=== PATIENT | male | born 1995 | race African-American/Black ===

== ENCOUNTER 2019-06-17 15:48 | Emergency (ER) | payer OTHER ==
[~2019-06-17] VITALS: Ht 180.3 cm; Wt 94.3 kg
[2019-06-17 16:08] VITALS: BP 131/76
--- NOTE | 2019-06-17 16:26 | Emergency Room Report ---
History of Present Illness General Chief Complaint: Pain Source: Patient Present Illness HPI 24-year-old male presents to the emergency department complaining of 10 out of 10 severity sore throat primarily on the left side that is been progressive x4 days. Patient reports that he was seen last night at [facility] for which he was evaluated and given an unknown injection and sent home. Patient reports today his symptoms are worse. Pain is exacerbated upon attempts to swallow or talk. He denies fevers or chills. Patient states he is not taking any other medications for symptoms. Denies cough, excessive drooling or inability to tolerate his own secretions. Patient denies shortness of breath or difficulty breathing. He denies rashes. Allergies: Coded Allergies: No Known Allergies (Unverified , 06/17/19) COVID-19 Screening Contact w/high risk pt: No Recent Travel to affected area: No Experienced COVID-19 symptoms?: No Patient History Past Medical History: see triage record Past Surgical History: none Pertinent Family History: none Immunizations: UTD Reviewed Nursing Documentation: PMH: Agreed; PSxH: Agreed Nursing Documentation-PMH Past Medical History: No Stated History Review of Systems All Other Systems: negative except mentioned in HPI Physical Exam Vital Signs Date Time Temp Pulse Resp B/P (MAP) Pulse Ox O2 Delivery O2 Flow Rate FiO2 06/17/19 15:55 98.2 83 15 131/76 (94) 95 Room Air Sp02 EP Interpretation: reviewed, normal General Appearance: no apparent distress, alert, GCS 15, non-toxic Head: normocephalic, atraumatic Eyes: bilateral eye normal inspection, bilateral eye PERRL ENT: hearing grossly normal, normal voice, other - Tonsillar swelling bilaterally however majority in the left tonsil as well as some visible swelling and fullness in the posterior soft palate on the left side. Palpable fullness as well. No exudates noted. Neck: full range of motion, no meningismus, no bony tend Respiratory: chest non-tender, lungs clear, normal breath sounds, no accessory muscle use, no wheezing, speaking full sentences, other - no stridor Cardiovascular #1: regular rate, rhythm Musculoskeletal: normal range of motion, gait/station normal, non-tender Neurologic: alert, motor strength/tone normal, oriented x3, sensory intact, responsive, speech normal Psychiatric: judgement/insight normal Lymphatic: no adenopathy Medical Decision Making PA Attestation Dr. Smith Is my supervising Physician whom patient management has been discussed with. Diagnostic Impression: Primary Impression: Acute bacterial tonsillitis Additional Impression: Early left peritonsillar abscess ER Course 24-year-old male presents to the emergency department complaining of 10 out of 10 severity sore throat primarily on the left side that is been progressive x4 days. Patient reports that he was seen last night at [facility] for which he was evaluated and given an unknown injection and sent home. Patient reports today his symptoms are worse. Pain is exacerbated upon attempts to swallow or talk. He denies fevers or chills. Patient states he is not taking any other medications for symptoms. Denies cough, excessive drooling or inability to tolerate his own secretions. Patient denies shortness of breath or difficulty breathing. He denies rashes. Ddx considered but are not limited to: pharyngitis, strep, [employer], ludwigs angina, retropharyngeal abscess, URI just to name a few. Vital signs: are WNL, pt. is afebrile H&PE are most consistent with: Clinical appearance with high suspicion for Left - sided [employer] ORDERS: -CT neck with contrast: ED INTERVENTIONS: - Unasyn 3gm IV - 10mg Decadron IV - Toradol 15mg IV -Lidocaine viscous PO d/w pt. strict ED return precautions for worsening of symptoms, difficulty breathing/SOB, inability or difficulty with swallowing or tolerating his own saliva, or worsening of pain. DISCHARGE: At this time pt. is stable for d/c to home. Will provide printed patient care instructions, and any necessary prescriptions. Care plan and follow up instructions have been discussed with the patient prior to discharge. CT/MRI/US Diagnostic Results CT/MRI/US Diagnostic Results : Imaging Test Ordered: CT neck with contrast Impression "IMPRESSION: [place] tonsillar enlargement, left greater than right suggesting tonsillitis. A vague 1.9 cm hypodensity suggests phlegmon/early left peritonsillar abscess. Doubt that this is a drainable fluid collection currently. Mild narrowing of the oropharyngeal airway. ". --Per official radiology report- Please see report for specific details. Last Vital Signs Date Time Temp Pulse Resp B/P (MAP) Pulse Ox O2 Delivery O2 Flow Rate FiO2 06/17/19 16:08 98.2 15 131/76 95 Room Air 06/17/19 15:55 83 Disposition: HOME, SELF-CARE Condition: Stable Scripts Ibuprofen* (MOTRIN*) 600 Mg Tablet 600 MG ORAL THREE TIMES A DAY, #20 TAB Prov: Christel Beckman 06/17/19 Lidocaine HCl 2% Viscous (Lidocaine HCl 2% Viscous) 100 Ml Solution 10 ML ORAL QID, #200 ML Prov: Christel Beckman 06/17/19 Acetaminophen With Codeine (T#3) (TYLENOL #3 TAB*) Y Tab 1 TAB ORAL Q6H PRN for For Pain, #9 TAB Prov: Christel Beckman 06/17/19 Amoxicillin/Potassium Clav 875-125* (AUGMENTIN 875-125 TABLET*) 1 Each Tablet 1 TAB ORAL TWICE A DAY for 10 Days, #20 TAB Prov: Christel Beckman 06/17/19 Referrals: [facility] + [facility] Patient Instructions: Peritonsillar Abscess, Clat-[id number] Additional Instructions: Take medications as directed. Follow up with a Primary Care Provider in 3-5 days, even if your symptoms have resolved. --Please review list of primary care clinics, if you do not already have a primary care provider Return sooner to ED if new symptoms occur, or current symptoms become worse. Do not drink alcohol, drive, or operate heavy machinery while taking Tylenol # 3 as this may cause drowsiness. - Please note that this Emergency Department Report was dictated using [employer] agent technology software, occasionally this can lead to erroneous entry secondary to interpretation by the dictation equipment. Christel Beckman June 17, 2019 16:26
[2019-06-17] MEDS ORDERED: Dexamethasone 4mg/ml vial IVP ONE (16:30)
[2019-06-17] MEDS ORDERED: Ampicillin/Sulbactam Sod 3 GM in NS 110 ML IVPB ONE (16:30)
[2019-06-17] MEDS ORDERED: Ketorolac 30mg Inj IV ONE (16:30)
[2019-06-17 17:25] LABS: BASOPHILS % (AUTO) 1.6 % (0.0-2.0); EOSINOPHILS % (AUTO) 0.1 % (0.0-3.0); HEMATOCRIT 45.5 % (42.0-52.0); HEMOGLOBIN 14.4 G/DL (14.2-18.0); LYMPHOCYTES % (AUTO) 13.7 % (20.0-45.0); MEAN CORPUSCULAR VOLUME 98 FL (80-99); MONOCYTES % (AUTO) 8.7 % (1.0-10.0); PLATELET COUNT 196 K/UL (150-450); RED BLOOD COUNT 4.62 M/UL (4.70-6.10); RED CELL DISTRIBUTION WIDTH 11.6 % (11.6-14.8); WHITE BLOOD COUNT 11.3 K/UL (4.8-10.8)
[2019-06-17 17:29] LABS: ANION GAP 14 mmol/L (5-15); BLOOD UREA NITROGEN 14 mg/dL (7-18); CALCIUM 9.5 MG/DL (8.5-10.1); CARBON DIOXIDE 24 MMOL/L (21-32); CHLORIDE 109 MMOL/L (98-107); CREATININE 1.1 MG/DL (0.55-1.30); POTASSIUM 4.8 MMOL/L (3.5-5.1); SODIUM 147 MMOL/L (136-145)
--- NOTE | 2019-06-17 18:00 | NUR ---
ED Nurse Note: Pt returned from CT via wheelchair.
--- NOTE | 2019-06-17 18:20 | Diagnostic Imaging Report ---
EXAM: CT Neck With Intravenous Contrast CLINICAL HISTORY: PAIN TECHNIQUE: Axial computed tomography images of the neck with intravenous contrast. CTDI is 7.7 mGy and DLP is 213.4 mGy-cm. One or more of the following dose reduction techniques were used: automated exposure control, adjustment of the mA and/or kV according to patient size, use of iterative reconstruction technique. COMPARISON: No relevant prior studies available. FINDINGS: [place] tonsillar enlargement suggesting tonsillitis. This is more pronounced on the left where there is a vague hypodensity centrally. Margins are ill-defined, but this measures approximately 1.9 x 1.7 cm in greatest anteroposterior and transverse dimensions on series 4, image 21. Suspect phlegmon/developing peritonsillar abscess. Doubt that this is drainable currently. There is no retropharyngeal fluid. No epiglottic thickening. Mild narrowing of the oropharyngeal airway. Remainder of the airway is widely patent. Reactive lymphadenopathy, most pronounced in the left jugulodigastric region. Rounded mucosal thickening to the inferior left maxillary sinus consistent with mucous retention cyst. No enhancement to suggest polyp or other solid mass. No intrasinus fluid. IMPRESSION: [place] tonsillar enlargement, left greater than right suggesting tonsillitis. A vague 1.9 cm hypodensity suggests phlegmon/early left peritonsillar abscess. Doubt that this is a drainable fluid collection currently. Mild narrowing of the oropharyngeal airway.
[2019-06-17] MEDS ORDERED: ACETAMINOPHEN-1 EAC1 ORAL (18:43)
[2019-06-17] MEDS ORDERED: AUGMENTIN 875-1 EAC1 ORAL (18:43)
[2019-06-17] MEDS ORDERED: IBUPROFEN600 M1 ORAL (18:43)
[2019-06-17] MEDS ORDERED: LIDOCAINE VISC100 ML ORAL (18:43)
[2019-06-17] MEDS ORDERED: Lidocaine 2% Visc 15ml soln ORAL ONE (18:45)
[2019-06-17 18:58] VITALS: BP 127/80
--- NOTE | 2019-06-17 18:58 | NUR ---
ER DISCHARGE NOTE: Patient is cleared to be discharged per PA, pt is aox4, on room air, with stable vital signs. pt was given dc and prescription instructions, pt was able to verbalize understanding, pt id band and iv site removed without complications. pt is able to ambulate with steady gait. pt took all belongings.
== END 2019-06-17 18:58 | disposition home or self-care (01) ==
LOC: EMR 16:33
DX: J03.90 Acute tonsillitis, unspecified (principal); J36 Peritonsillar abscess
CPT/HCPCS: 36415; 70491; 80048; 85025; 96365; 96375; J0295; J1100; J1885; Q9967; Z7502; 99284